=== PATIENT | male | born 1955 | race African-American/Black ===

== ENCOUNTER 2021-02-07 14:08 | Inpatient (IN) | payer OTHER ==
[2021-02-07 16:22] VITALS: BMI 26.4
[2021-02-07] MEDS ORDERED: METHOCARBAMOL 500 MG TABLET PO PRN (18:15)
[2021-02-07] MEDS ORDERED: NICOTINE POLACRILEX 2 MG GUM BUC PRN (18:15)
[2021-02-07] MEDS ORDERED: MAGNESIUM HYDROX 2400MG/30ML ORAL SUSPENSION 30 ML CUP PO PRN (18:15)
[2021-02-07] MEDS ORDERED: ACETAMINOPHEN 325 MG TABLET (FP) PO PRN ×2 (18:15)
[2021-02-07] MEDS ORDERED: LORazepam 1 MG TABLET PO PRN (18:15)
[2021-02-07] MEDS ORDERED: BISMUTH SUBSALICYLATE 524 MG/30 ML PO PRN (18:15)
[2021-02-07] MEDS ORDERED: MAGNESIUM CITRATE 300 ML BOTTLE PO PRN (18:15)
[2021-02-07] MEDS ORDERED: MENTHOL/PHENOL 1 EACH UD MM PRN (18:15)
[2021-02-07] MEDS ORDERED: IBUPROFEN 400 MG TABLET (FP) PO PRN (18:15)
[2021-02-07] MEDS: MAG HYDROX/AL HYDROX/SIMETH 30 ML UNIT-DOSE CUP PO PRN (20:13)
[2021-02-07] MEDS: LORazepam 2 MG TABLET PO SCH (22:44)
[2021-02-07] MEDS: ONDANSETRON *ODT* 4 MG TABLET SL PRN (22:45)
[2021-02-07] MEDS: THIAMINE HCL 100 MG TABLET (FP) PO SCH (22:45)
[2021-02-07] MEDS: hydrOXYzine PAMOATE 25 MG CAPSULE (FP) PO SCH (22:45)
[2021-02-07] MEDS: MELATONIN 5 MG TABLETS PO SCH (22:45)
[2021-02-08] MEDS: hydrOXYzine PAMOATE 25 MG CAPSULE (FP) PO SCH (07:22)
[2021-02-08] MEDS: LORazepam 2 MG TABLET PO SCH ×4 (07:22→22:05)
[2021-02-08] MEDS: AMIODARONE HCL 200 MG TABLET PO SCH (10:24)
[2021-02-08] MEDS: PRENATAL VITAMINS W/ FOLIC ACID TABLET (FP) PO SCH (10:24)
[2021-02-08] MEDS: METOPROLOL TARTRATE 25 MG TABLET (FP) PO SCH ×2 (10:24→22:07)
[2021-02-08] MEDS: NIFEdipine E.R. 90 MG TABLET PO SCH (10:24)
[2021-02-08] MEDS: hydrALAZINE HCL 25 MG TABLET (FP) PO SCH ×2 (10:24→23:00)
[2021-02-08] MEDS: ASPIRIN 81 MG CHEWABLE TABLETS PO SCH (10:31)
[2021-02-08 11:14] LABS: CALCIUM 9.3 mg/dL (8.5-10.1)
[2021-02-08 11:16] LABS: ALBUMIN 3.3 g/dl (3.4-5.0)
[2021-02-08 11:18] LABS: CREATININE 0.8 mg/dL (0.55-1.3)
[2021-02-08 11:21] LABS: BILIRUBIN,TOTAL 0.6 mg/dL (0.2-1); TOT PROT 6.2 g/dl (6.4-8.2)
[2021-02-08 11:35] LABS: HEMATOCRIT 40.2 % (35.4-49); HEMOGLOBIN 13.2 GM/dL (11.7-16.9); MCH 30.5 pg (25.7-33.7); MCHC 32.8 g/dl (32.0-35.9); MEAN PLT VOLUME 9.9 fl (7.5-11.1); PLATELET COUNT 168 10^3/uL (134-434); RBC 4.32 M/mm3 (4.00-5.60); RDW 15.1 % (11.9-15.9); WHITE BLOOD COUNT 6.8 K/mm3 (4.0-10.0)
[2021-02-08] MEDS ORDERED: QUEtiapine FUMARATE 200 MG TABLET PO SCH (22:00)
[2021-02-08] MEDS ORDERED: traZODone HCL 100 MG TABLET (FP) PO SCH (22:00)
[2021-02-08] MEDS: MELATONIN 5 MG TABLETS PO SCH (22:10)
[2021-02-08] MEDS: THIAMINE HCL 100 MG TABLET (FP) PO SCH (23:00)
[2021-02-09] MEDS: LORazepam 1 MG TABLET PO SCH ×4 (06:46→22:00)
[2021-02-09] MEDS: PRENATAL VITAMINS W/ FOLIC ACID TABLET (FP) PO SCH (10:39)
[2021-02-09] MEDS: AMIODARONE HCL 200 MG TABLET PO SCH (10:39)
[2021-02-09] MEDS: NIFEdipine E.R. 90 MG TABLET PO SCH (10:39)
[2021-02-09] MEDS: hydrALAZINE HCL 25 MG TABLET (FP) PO SCH ×2 (10:39→21:59)
[2021-02-09] MEDS: METOPROLOL TARTRATE 25 MG TABLET (FP) PO SCH ×2 (10:39→21:59)
[2021-02-09] MEDS: ASPIRIN 81 MG CHEWABLE TABLETS PO SCH (10:40)
[2021-02-09] MEDS: ONDANSETRON *ODT* 4 MG TABLET SL PRN (18:16)
[2021-02-09] MEDS: traZODone HCL 50 MG TABLET (FP) PO SCH (21:57)
[2021-02-09] MEDS: QUEtiapine FUMARATE 100 MG TABLET (FP) PO SCH (21:57)
[2021-02-09] MEDS: MELATONIN 5 MG TABLETS PO SCH (21:59)
[2021-02-09] MEDS: THIAMINE HCL 100 MG TABLET (FP) PO SCH (21:59)
[2021-02-10] MEDS ORDERED: LORazepam 0.5 MG TABLET PO PRN
[2021-02-10] MEDS: LORazepam 0.5 MG TABLET PO SCH ×4 (07:22→22:01)
[2021-02-10] MEDS: ASPIRIN 81 MG CHEWABLE TABLETS PO SCH (10:30)
[2021-02-10] MEDS: AMIODARONE HCL 200 MG TABLET PO SCH (10:34)
[2021-02-10] MEDS: METOPROLOL TARTRATE 25 MG TABLET (FP) PO SCH ×2 (10:35→22:03)
[2021-02-10] MEDS: NIFEdipine E.R. 90 MG TABLET PO SCH (10:35)
[2021-02-10] MEDS: hydrALAZINE HCL 25 MG TABLET (FP) PO SCH ×2 (10:35→22:03)
[2021-02-10] MEDS: PRENATAL VITAMINS W/ FOLIC ACID TABLET (FP) PO SCH (10:35)
[2021-02-10] MEDS: hydrOXYzine PAMOATE 25 MG CAPSULE (FP) PO PRN (10:36)
[2021-02-10] MEDS: THIAMINE HCL 100 MG TABLET (FP) PO SCH (22:02)
[2021-02-10] MEDS: traZODone HCL 50 MG TABLET (FP) PO SCH (22:02)
[2021-02-10] MEDS ORDERED: MASKS NR ONE (22:02)
[2021-02-10] MEDS: QUEtiapine FUMARATE 100 MG TABLET (FP) PO SCH (22:02)
[2021-02-10] MEDS: MELATONIN 5 MG TABLETS PO SCH (22:03)
[2021-02-11] MEDS: MAG HYDROX/AL HYDROX/SIMETH 30 ML UNIT-DOSE CUP PO PRN (00:50)
[2021-02-11] MEDS ORDERED: LORazepam 0.5 MG TABLET PO ONE (05:00)
[2021-02-11] MEDS: NIFEdipine E.R. 90 MG TABLET PO SCH (10:23)
[2021-02-11] MEDS: hydrOXYzine PAMOATE 25 MG CAPSULE (FP) PO PRN (10:23)
[2021-02-11] MEDS: AMIODARONE HCL 200 MG TABLET PO SCH (10:23)
[2021-02-11] MEDS: hydrALAZINE HCL 25 MG TABLET (FP) PO SCH (10:23)
[2021-02-11] MEDS: ASPIRIN 81 MG CHEWABLE TABLETS PO SCH (10:23)
[2021-02-11] MEDS: METOPROLOL TARTRATE 25 MG TABLET (FP) PO SCH (10:23)
[2021-02-11] MEDS: PRENATAL VITAMINS W/ FOLIC ACID TABLET (FP) PO SCH (10:24)
[2021-02-11 17:05] VITALS: BP 101/77; PULSE 97; TEMP 97.8
[2021-02-11] MEDS ORDERED: QUEtiapine FUMARATE 400 MG TABLET PO SCH (22:00)
== END 2021-02-11 18:05 | disposition other institution (70) | DRG 775 ==
LOC: YASAS 14:08 → Y3N 18:35
PROVIDERS: ADMIT Allergy & Immunology; ATTEND Allergy & Immunology
PROC: HZ2ZZZZ Detoxification Services for Substance Abuse Treatment (ICD-10-PCS; principal; 2021-02-07)
DX: F10.230 Alcohol dependence with withdrawal, uncomplicated (principal); F12.20 Cannabis dependence, uncomplicated; F17.210 Nicotine dependence, cigarettes, uncomplicated; F19.24 Other psychoactive substance dependence with psychoactive substance-induced mood disorder; F31.9 Bipolar disorder, unspecified; G40.909 Epilepsy, unspecified, not intractable, without status epilepticus; I10 Essential (primary) hypertension; J44.9 Chronic obstructive pulmonary disease, unspecified; K21.9 Gastro-esophageal reflux disease without esophagitis; M41.9 Scoliosis, unspecified; M54.5 Low back pain; G89.29 Other chronic pain; Z86.79 Personal history of other diseases of the circulatory system
CPT/HCPCS: 36415; 80053; 80299; 85027; 86780; C9803; Q0162; U0003; U0005

== ENCOUNTER 2021-02-11 18:12 | Inpatient (IN) | payer OTHER ==
[2021-02-11] MEDS ORDERED: LOPERAMIDE HCL 2 MG CAPSULE PO PRN (19:29)
[2021-02-11] MEDS ORDERED: MENTHOL/PHENOL 1 EACH UD MM PRN (19:29)
[2021-02-11] MEDS ORDERED: NICOTINE POLACRILEX 2 MG GUM BUC PRN (19:29)
[2021-02-11] MEDS ORDERED: ACETAMINOPHEN 325 MG TABLET (FP) PO PRN (19:29)
[2021-02-11] MEDS ORDERED: guaiFENesin 200 MG/10 ML 10 ML UNIT-DOSE CUPS PO PRN (19:29)
[2021-02-11] MEDS ORDERED: P-EPHED 60MG/TRIPROLIDI 2.5MG TABLET PO PRN (19:29)
[2021-02-11] MEDS ORDERED: IBUPROFEN 400 MG TABLET (FP) PO PRN (19:29)
[2021-02-11] MEDS ORDERED: MAGNESIUM CITRATE 300 ML BOTTLE PO PRN (19:29)
[2021-02-11] MEDS ORDERED: MAGNESIUM HYDROX 2400MG/30ML ORAL SUSPENSION 30 ML CUP PO PRN (19:29)
[2021-02-11] MEDS: MAG HYDROX/AL HYDROX/SIMETH 30 ML UNIT-DOSE CUP PO PRN (20:42)
[2021-02-11] MEDS: MELATONIN 5 MG TABLETS PO SCH (22:09)
[2021-02-11] MEDS: levETIRAcetam 500 MG TABLET (FP) PO SCH (22:09)
[2021-02-11] MEDS: METOPROLOL TARTRATE 25 MG TABLET (FP) PO SCH (22:09)
[2021-02-11] MEDS: THIAMINE HCL 100 MG TABLET (FP) PO SCH (22:09)
[2021-02-12] MEDS: AMIODARONE HCL 200 MG TABLET PO SCH (10:47)
[2021-02-12] MEDS: ASPIRIN 81 MG CHEWABLE TABLETS PO SCH (10:47)
[2021-02-12] MEDS: levETIRAcetam 500 MG TABLET (FP) PO SCH ×2 (10:47→21:53)
[2021-02-12] MEDS: PRENATAL VITAMINS W/ FOLIC ACID TABLET (FP) PO SCH (10:47)
[2021-02-12] MEDS: METOPROLOL TARTRATE 25 MG TABLET (FP) PO SCH ×2 (10:47→21:53)
[2021-02-12] MEDS: NIFEdipine E.R. 90 MG TABLET PO SCH (10:47)
[2021-02-12] MEDS: hydrALAZINE HCL 25 MG TABLET (FP) PO SCH ×2 (10:47→21:53)
[2021-02-12] MEDS ORDERED: PT OWN MED DRAWER 7, Y5N ONE (21:51)
[2021-02-12] MEDS: traZODone HCL 50 MG TABLET (FP) PO SCH (21:53)
[2021-02-12] MEDS: QUEtiapine FUMARATE 400 MG TABLET PO SCH (21:53)
[2021-02-12] MEDS: THIAMINE HCL 100 MG TABLET (FP) PO SCH (21:53)
[2021-02-12] MEDS: MELATONIN 5 MG TABLETS PO SCH (21:53)
[2021-02-12] MEDS ORDERED: traZODone HCL 50 MG TABLET (FP) PO SCH (22:00)
[2021-02-12] MEDS: MAG HYDROX/AL HYDROX/SIMETH 30 ML UNIT-DOSE CUP PO PRN (22:23)
[2021-02-13] MEDS: PRENATAL VITAMINS W/ FOLIC ACID TABLET (FP) PO SCH (10:12)
[2021-02-13] MEDS: levETIRAcetam 500 MG TABLET (FP) PO SCH ×2 (10:12→21:56)
[2021-02-13] MEDS: ASPIRIN 81 MG CHEWABLE TABLETS PO SCH (10:12)
[2021-02-13] MEDS: NIFEdipine E.R. 90 MG TABLET PO SCH (10:14)
[2021-02-13] MEDS: hydrALAZINE HCL 25 MG TABLET (FP) PO SCH ×2 (10:15→21:59)
[2021-02-13] MEDS: AMIODARONE HCL 200 MG TABLET PO SCH (10:15)
[2021-02-13] MEDS: METOPROLOL TARTRATE 25 MG TABLET (FP) PO SCH ×2 (10:15→21:56)
[2021-02-13] MEDS: MAG HYDROX/AL HYDROX/SIMETH 30 ML UNIT-DOSE CUP PO PRN ×2 (10:17→22:00)
[2021-02-13] MEDS: traZODone HCL 50 MG TABLET (FP) PO SCH (21:55)
[2021-02-13] MEDS: MELATONIN 5 MG TABLETS PO SCH (21:56)
[2021-02-13] MEDS: QUEtiapine FUMARATE 400 MG TABLET PO SCH (21:56)
[2021-02-13] MEDS: THIAMINE HCL 100 MG TABLET (FP) PO SCH (21:57)
[2021-02-14] MEDS: MAG HYDROX/AL HYDROX/SIMETH 30 ML UNIT-DOSE CUP PO PRN (02:20)
[2021-02-14] MEDS ORDERED: PT OWN MED DRAWER 7, Y5N ONE (09:04)
[2021-02-14] MEDS: AMIODARONE HCL 200 MG TABLET PO SCH (10:04)
[2021-02-14] MEDS: NIFEdipine E.R. 90 MG TABLET PO SCH (10:04)
[2021-02-14] MEDS: hydrALAZINE HCL 25 MG TABLET (FP) PO SCH ×2 (10:04→21:30)
[2021-02-14] MEDS: levETIRAcetam 500 MG TABLET (FP) PO SCH ×2 (10:04→21:30)
[2021-02-14] MEDS: METOPROLOL TARTRATE 25 MG TABLET (FP) PO SCH ×2 (10:05→21:30)
[2021-02-14] MEDS: ASPIRIN 81 MG CHEWABLE TABLETS PO SCH (10:05)
[2021-02-14] MEDS: PRENATAL VITAMINS W/ FOLIC ACID TABLET (FP) PO SCH (10:05)
[2021-02-14] MEDS: MELATONIN 5 MG TABLETS PO SCH (21:30)
[2021-02-14] MEDS: QUEtiapine FUMARATE 400 MG TABLET PO SCH (21:30)
[2021-02-14] MEDS: traZODone HCL 50 MG TABLET (FP) PO SCH (21:30)
[2021-02-14] MEDS: THIAMINE HCL 100 MG TABLET (FP) PO SCH (21:30)
[2021-02-15] MEDS: PRENATAL VITAMINS W/ FOLIC ACID TABLET (FP) PO SCH (09:51)
[2021-02-15] MEDS: NIFEdipine E.R. 90 MG TABLET PO SCH (09:52)
[2021-02-15] MEDS: METOPROLOL TARTRATE 25 MG TABLET (FP) PO SCH ×2 (09:52→21:45)
[2021-02-15] MEDS: levETIRAcetam 500 MG TABLET (FP) PO SCH ×2 (09:52→21:43)
[2021-02-15] MEDS: ASPIRIN 81 MG CHEWABLE TABLETS PO SCH (09:52)
[2021-02-15] MEDS: hydrALAZINE HCL 25 MG TABLET (FP) PO SCH ×2 (09:53→21:43)
[2021-02-15] MEDS: AMIODARONE HCL 200 MG TABLET PO SCH (09:54)
[2021-02-15] MEDS: MAG HYDROX/AL HYDROX/SIMETH 30 ML UNIT-DOSE CUP PO PRN (15:53)
[2021-02-15] MEDS ORDERED: PT OWN MED DRAWER 7, Y5N ONE (19:28)
[2021-02-15] MEDS: THIAMINE HCL 100 MG TABLET (FP) PO SCH (21:43)
[2021-02-15] MEDS: traZODone HCL 50 MG TABLET (FP) PO SCH (21:43)
[2021-02-15] MEDS: QUEtiapine FUMARATE 400 MG TABLET PO SCH (21:43)
[2021-02-15] MEDS: MELATONIN 5 MG TABLETS PO SCH (21:45)
[2021-02-16] MEDS ORDERED: PT OWN MED DRAWER 7, Y5N ONE ×3 (09:06→20:14)
[2021-02-16] MEDS: PRENATAL VITAMINS W/ FOLIC ACID TABLET (FP) PO SCH (09:57)
[2021-02-16] MEDS: levETIRAcetam 500 MG TABLET (FP) PO SCH ×2 (09:58→22:05)
[2021-02-16] MEDS: METOPROLOL TARTRATE 25 MG TABLET (FP) PO SCH ×2 (09:58→22:05)
[2021-02-16] MEDS: ASPIRIN 81 MG CHEWABLE TABLETS PO SCH (09:58)
[2021-02-16] MEDS: hydrALAZINE HCL 25 MG TABLET (FP) PO SCH ×2 (10:00→22:04)
[2021-02-16] MEDS: NIFEdipine E.R. 90 MG TABLET PO SCH (10:00)
[2021-02-16] MEDS: AMIODARONE HCL 200 MG TABLET PO SCH (10:01)
[2021-02-16] MEDS: traZODone HCL 50 MG TABLET (FP) PO SCH (22:04)
[2021-02-16] MEDS: QUEtiapine FUMARATE 400 MG TABLET PO SCH (22:05)
[2021-02-16] MEDS: THIAMINE HCL 100 MG TABLET (FP) PO SCH (22:05)
[2021-02-16] MEDS: MELATONIN 5 MG TABLETS PO SCH (22:05)
[2021-02-17] MEDS: METOPROLOL TARTRATE 25 MG TABLET (FP) PO SCH ×2 (10:08→21:22)
[2021-02-17] MEDS: PRENATAL VITAMINS W/ FOLIC ACID TABLET (FP) PO SCH (10:08)
[2021-02-17] MEDS: levETIRAcetam 500 MG TABLET (FP) PO SCH ×2 (10:08→21:22)
[2021-02-17] MEDS: ASPIRIN 81 MG CHEWABLE TABLETS PO SCH (10:08)
[2021-02-17] MEDS: AMIODARONE HCL 200 MG TABLET PO SCH (10:09)
[2021-02-17] MEDS: hydrALAZINE HCL 25 MG TABLET (FP) PO SCH ×2 (10:09→21:22)
[2021-02-17] MEDS: NIFEdipine E.R. 90 MG TABLET PO SCH (10:09)
[2021-02-17] MEDS ORDERED: PT OWN MED DRAWER 7, Y5N ONE (20:33)
[2021-02-17] MEDS: traZODone HCL 50 MG TABLET (FP) PO SCH (21:21)
[2021-02-17] MEDS: QUEtiapine FUMARATE 400 MG TABLET PO SCH (21:21)
[2021-02-17] MEDS: MELATONIN 5 MG TABLETS PO SCH (21:22)
[2021-02-17] MEDS: THIAMINE HCL 100 MG TABLET (FP) PO SCH (21:22)
[2021-02-18] MEDS: MAG HYDROX/AL HYDROX/SIMETH 30 ML UNIT-DOSE CUP PO PRN ×2 (00:29→22:53)
[2021-02-18] MEDS: PRENATAL VITAMINS W/ FOLIC ACID TABLET (FP) PO SCH (10:01)
[2021-02-18] MEDS: NIFEdipine E.R. 90 MG TABLET PO SCH (10:02)
[2021-02-18] MEDS: levETIRAcetam 500 MG TABLET (FP) PO SCH ×2 (10:02→21:36)
[2021-02-18] MEDS: METOPROLOL TARTRATE 25 MG TABLET (FP) PO SCH ×2 (10:02→21:37)
[2021-02-18] MEDS: AMIODARONE HCL 200 MG TABLET PO SCH (10:02)
[2021-02-18] MEDS: ASPIRIN 81 MG CHEWABLE TABLETS PO SCH (10:02)
[2021-02-18] MEDS: hydrALAZINE HCL 25 MG TABLET (FP) PO SCH ×2 (10:03→21:38)
[2021-02-18] MEDS: THIAMINE HCL 100 MG TABLET (FP) PO SCH (21:36)
[2021-02-18] MEDS: traZODone HCL 50 MG TABLET (FP) PO SCH (21:36)
[2021-02-18] MEDS: MELATONIN 5 MG TABLETS PO SCH (21:37)
[2021-02-18] MEDS: QUEtiapine FUMARATE 400 MG TABLET PO SCH (21:37)
[2021-02-18] MEDS ORDERED: PT OWN MED DRAWER 7, Y5N ONE (21:38)
[2021-02-19] MEDS: PRENATAL VITAMINS W/ FOLIC ACID TABLET (FP) PO SCH (09:48)
[2021-02-19] MEDS: levETIRAcetam 500 MG TABLET (FP) PO SCH ×2 (09:49→22:14)
[2021-02-19] MEDS: METOPROLOL TARTRATE 25 MG TABLET (FP) PO SCH ×2 (09:49→22:14)
[2021-02-19] MEDS: AMIODARONE HCL 200 MG TABLET PO SCH (09:49)
[2021-02-19] MEDS: ASPIRIN 81 MG CHEWABLE TABLETS PO SCH (09:49)
[2021-02-19] MEDS: NIFEdipine E.R. 90 MG TABLET PO SCH (09:50)
[2021-02-19] MEDS: hydrALAZINE HCL 25 MG TABLET (FP) PO SCH ×2 (09:51→22:14)
[2021-02-19] MEDS ORDERED: PT OWN MED DRAWER 7, Y5N ONE (19:22)
[2021-02-19] MEDS: MAG HYDROX/AL HYDROX/SIMETH 30 ML UNIT-DOSE CUP PO PRN (19:55)
[2021-02-19] MEDS: MELATONIN 5 MG TABLETS PO SCH (22:14)
[2021-02-19] MEDS: traZODone HCL 50 MG TABLET (FP) PO SCH (22:14)
[2021-02-19] MEDS: QUEtiapine FUMARATE 400 MG TABLET PO SCH (22:14)
[2021-02-19] MEDS: THIAMINE HCL 100 MG TABLET (FP) PO SCH (22:14)
[2021-02-20] MEDS: ASPIRIN 81 MG CHEWABLE TABLETS PO SCH (11:09)
[2021-02-20] MEDS: PRENATAL VITAMINS W/ FOLIC ACID TABLET (FP) PO SCH (11:09)
[2021-02-20] MEDS: AMIODARONE HCL 200 MG TABLET PO SCH (11:14)
[2021-02-20] MEDS: NIFEdipine E.R. 90 MG TABLET PO SCH (11:14)
[2021-02-20] MEDS: levETIRAcetam 500 MG TABLET (FP) PO SCH ×2 (11:16→21:40)
[2021-02-20] MEDS: hydrALAZINE HCL 25 MG TABLET (FP) PO SCH ×2 (11:17→21:40)
[2021-02-20] MEDS: METOPROLOL TARTRATE 25 MG TABLET (FP) PO SCH ×2 (11:17→21:40)
[2021-02-20] MEDS ORDERED: PT OWN MED DRAWER 7, Y5N ONE (18:44)
[2021-02-20] MEDS: MAG HYDROX/AL HYDROX/SIMETH 30 ML UNIT-DOSE CUP PO PRN (18:46)
[2021-02-20] MEDS: THIAMINE HCL 100 MG TABLET (FP) PO SCH (21:40)
[2021-02-20] MEDS: traZODone HCL 50 MG TABLET (FP) PO SCH (21:40)
[2021-02-20] MEDS: MELATONIN 5 MG TABLETS PO SCH (21:40)
[2021-02-20] MEDS: QUEtiapine FUMARATE 400 MG TABLET PO SCH (21:40)
[2021-02-21] MEDS: NIFEdipine E.R. 90 MG TABLET PO SCH (10:17)
[2021-02-21] MEDS: METOPROLOL TARTRATE 25 MG TABLET (FP) PO SCH ×2 (10:17→21:42)
[2021-02-21] MEDS: levETIRAcetam 500 MG TABLET (FP) PO SCH ×2 (10:17→21:42)
[2021-02-21] MEDS: PRENATAL VITAMINS W/ FOLIC ACID TABLET (FP) PO SCH (10:17)
[2021-02-21] MEDS: ASPIRIN 81 MG CHEWABLE TABLETS PO SCH (10:17)
[2021-02-21] MEDS: hydrALAZINE HCL 25 MG TABLET (FP) PO SCH ×2 (10:18→21:42)
[2021-02-21] MEDS: PANTOPRAZOLE 40 MG TABLET PO SCH (10:19)
[2021-02-21] MEDS: AMIODARONE HCL 200 MG TABLET PO SCH (10:19)
[2021-02-21] MEDS: THIAMINE HCL 100 MG TABLET (FP) PO SCH (21:42)
[2021-02-21] MEDS: traZODone HCL 50 MG TABLET (FP) PO SCH (21:42)
[2021-02-21] MEDS: QUEtiapine FUMARATE 400 MG TABLET PO SCH (21:42)
[2021-02-21] MEDS: MELATONIN 5 MG TABLETS PO SCH (21:43)
[2021-02-22] MEDS: PRENATAL VITAMINS W/ FOLIC ACID TABLET (FP) PO SCH (10:18)
[2021-02-22] MEDS: hydrALAZINE HCL 25 MG TABLET (FP) PO SCH ×2 (10:19→22:01)
[2021-02-22] MEDS: ASPIRIN 81 MG CHEWABLE TABLETS PO SCH (10:19)
[2021-02-22] MEDS: PANTOPRAZOLE 40 MG TABLET PO SCH (10:19)
[2021-02-22] MEDS: levETIRAcetam 500 MG TABLET (FP) PO SCH ×2 (10:19→22:01)
[2021-02-22] MEDS: AMIODARONE HCL 200 MG TABLET PO SCH (10:19)
[2021-02-22] MEDS: METOPROLOL TARTRATE 25 MG TABLET (FP) PO SCH ×2 (10:19→22:01)
[2021-02-22] MEDS: NIFEdipine E.R. 90 MG TABLET PO SCH (10:20)
[2021-02-22] MEDS: QUEtiapine FUMARATE 400 MG TABLET PO SCH (22:00)
[2021-02-22] MEDS: MELATONIN 5 MG TABLETS PO SCH (22:01)
[2021-02-22] MEDS: traZODone HCL 50 MG TABLET (FP) PO SCH (22:01)
[2021-02-22] MEDS: THIAMINE HCL 100 MG TABLET (FP) PO SCH (22:01)
[2021-02-23] MEDS: PRENATAL VITAMINS W/ FOLIC ACID TABLET (FP) PO SCH (10:58)
[2021-02-23] MEDS: levETIRAcetam 500 MG TABLET (FP) PO SCH ×2 (11:00→21:08)
[2021-02-23] MEDS: PANTOPRAZOLE 40 MG TABLET PO SCH (11:00)
[2021-02-23] MEDS: ASPIRIN 81 MG CHEWABLE TABLETS PO SCH (11:00)
[2021-02-23] MEDS: METOPROLOL TARTRATE 25 MG TABLET (FP) PO SCH ×2 (11:01→21:08)
[2021-02-23] MEDS: hydrALAZINE HCL 25 MG TABLET (FP) PO SCH ×2 (11:01→21:08)
[2021-02-23] MEDS: NIFEdipine E.R. 90 MG TABLET PO SCH (11:03)
[2021-02-23] MEDS: AMIODARONE HCL 200 MG TABLET PO SCH (11:04)
[2021-02-23] MEDS: QUEtiapine FUMARATE 400 MG TABLET PO SCH (21:08)
[2021-02-23] MEDS: traZODone HCL 50 MG TABLET (FP) PO SCH (21:08)
[2021-02-23] MEDS: MELATONIN 5 MG TABLETS PO SCH (21:09)
[2021-02-23] MEDS: THIAMINE HCL 100 MG TABLET (FP) PO SCH (21:09)
[2021-02-24] MEDS: levETIRAcetam 500 MG TABLET (FP) PO SCH ×2 (10:40→21:54)
[2021-02-24] MEDS: ASPIRIN 81 MG CHEWABLE TABLETS PO SCH (10:40)
[2021-02-24] MEDS: NIFEdipine E.R. 90 MG TABLET PO SCH (10:40)
[2021-02-24] MEDS: AMIODARONE HCL 200 MG TABLET PO SCH (10:40)
[2021-02-24] MEDS: PRENATAL VITAMINS W/ FOLIC ACID TABLET (FP) PO SCH (10:40)
[2021-02-24] MEDS: PANTOPRAZOLE 40 MG TABLET PO SCH (10:40)
[2021-02-24] MEDS: METOPROLOL TARTRATE 25 MG TABLET (FP) PO SCH ×2 (10:40→21:54)
[2021-02-24] MEDS: hydrALAZINE HCL 25 MG TABLET (FP) PO SCH ×2 (10:40→21:54)
[2021-02-24] MEDS: THIAMINE HCL 100 MG TABLET (FP) PO SCH (21:53)
[2021-02-24] MEDS: QUEtiapine FUMARATE 400 MG TABLET PO SCH (21:54)
[2021-02-24] MEDS: MELATONIN 5 MG TABLETS PO SCH (21:55)
[2021-02-24] MEDS: traZODone HCL 50 MG TABLET (FP) PO SCH (21:59)
[2021-02-25 07:45] VITALS: TEMP 98.3
[2021-02-25 09:15] VITALS: BP 119/83; PULSE 55
[2021-02-25] MEDS: levETIRAcetam 500 MG TABLET (FP) PO SCH (09:38)
[2021-02-25] MEDS: PANTOPRAZOLE 40 MG TABLET PO SCH (09:38)
[2021-02-25] MEDS: ASPIRIN 81 MG CHEWABLE TABLETS PO SCH (09:38)
[2021-02-25] MEDS: hydrALAZINE HCL 25 MG TABLET (FP) PO SCH (09:38)
[2021-02-25] MEDS: NIFEdipine E.R. 90 MG TABLET PO SCH (09:39)
[2021-02-25] MEDS: AMIODARONE HCL 200 MG TABLET PO SCH (09:39)
[2021-02-25] MEDS: PRENATAL VITAMINS W/ FOLIC ACID TABLET (FP) PO SCH (09:41)
== END 2021-02-25 09:48 | disposition home or self-care (01) | DRG 772 ==
LOC: YASAS 18:12 → Y5N 18:16
PROVIDERS: ADMIT Allergy & Immunology; ATTEND Allergy & Immunology
PROC: HZ42ZZZ Group Counseling for Substance Abuse Treatment, Cognitive-Behavioral (ICD-10-PCS; principal; 2021-02-11)
DX: F10.20 Alcohol dependence, uncomplicated (principal); F12.20 Cannabis dependence, uncomplicated; F17.210 Nicotine dependence, cigarettes, uncomplicated; F19.282 Other psychoactive substance dependence with psychoactive substance-induced sleep disorder; F31.9 Bipolar disorder, unspecified; G47.00 Insomnia, unspecified; G40.909 Epilepsy, unspecified, not intractable, without status epilepticus; I10 Essential (primary) hypertension; J44.9 Chronic obstructive pulmonary disease, unspecified; K21.9 Gastro-esophageal reflux disease without esophagitis; M41.9 Scoliosis, unspecified; M51.26 Other intervertebral disc displacement, lumbar region; M54.5 Low back pain; G89.29 Other chronic pain; Z86.79 Personal history of other diseases of the circulatory system